=== PATIENT | female | born 1960 ===

== ENCOUNTER 2018-03-17 13:14 | Emergency (ER) | payer MEDICAID, OTHER ==
[2018-03-17 13:14] VITALS: BMI 26.9
[2018-03-17 13:36] VITALS: BP 126/85; PULSE 65; RESP 18; TEMP 98.6; O2SAT 99
[2018-03-17 14:06] LABS: SQUAMOUS EPITHIAL 5 /hpf (0-5); URINE BACTERIA RARE (<OCC); URINE BILIRUBIN NEGATIVE (NEGATIVE); URINE BLOOD NEGATIVE (NEGATIVE); URINE CLARITY Hazy (Clear); URINE COLOR Yellow (YELLOW); URINE GLUCOSE (UA) NORMAL (Normal); URINE LEUKOCYTE ESTERASE 1+ Leu/uL (Negative); URINE PROTEIN NEGATIVE (NEGATIVE)
--- NOTE | 2018-03-17 14:35 | C.PDOC ---
History Of Present Illness 58 year old female presents to the ED for evaluation of dysuria for the last 3 days. Patient notes a burning sensation when urinating and prior multiple urinary tract infections. Denies fever, nausea, vomiting, diarrhea, and any other associated symptoms. Time Seen by Provider: 03/17/18 13:39 Chief Complaint (Nursing): Female Genitourinary History Per: Patient History/Exam Limitations: no limitations Onset/Duration Of Symptoms: Days Current Symptoms Are (Timing): Still Present Past Medical History Reviewed: Historical Data, Nursing Documentation, Vital Signs Vital Signs: Last Vital Signs Temp 98.6 F 03/17/18 13:33 Pulse 65 03/17/18 13:33 Resp 18 03/17/18 13:33 BP 126/85 03/17/18 13:33 Pulse Ox 99 03/17/18 13:33 - Medical History PMH: Asthma, HTN, Hyperthyroidism Surgical History: Tonsillectomy Family History: States: Unknown Family Hx - Social History Hx Alcohol Use: No Hx Substance Use: No - Immunization History Hx Tetanus Toxoid Vaccination: No Hx Influenza Vaccination: No Hx Pneumococcal Vaccination: No Review Of Systems Except As Marked, All Systems Reviewed And Found Negative. Constitutional: Negative for: Fever, Chills Gastrointestinal: Negative for: Diarrhea Genitourinary: Positive for: Dysuria, Other (burning sensation when urinating.) Physical Exam - Physical Exam Appears: Non-toxic Skin: Normal Color, Warm, Dry Head: Atraumatic, Normacephalic Eye(s): bilateral: Normal Inspection Oral Mucosa: Moist Neck: Normal ROM, Supple Chest: Symmetrical Cardiovascular: Rhythm Regular, No Murmur Respiratory: Normal Breath Sounds, No Rales, No Rhonchi, No Wheezing Gastrointestinal/Abdominal: Normal Exam, Soft, No Tenderness Extremity: Normal ROM (x4) Neurological/Psych: Oriented x3, Normal Speech Gait: Steady ED Course And Treatment - Laboratory Results Lab Interpretation: Abnormal (+1 leukocyte esterase on UA) O2 Sat by Pulse Oximetry: 99 (RA) Pulse Ox Interpretation: Normal Medical Decision Making Medical Decision Making: Plan: --Urinalysis. --Urine culture UA with +1 leukocyte esterase but no WBC, however given the patient's symptoms will treat for UTI. Progress/Update: Patient stable for discharge home. Prescribed Macrobid. Disposition - Disposition Disposition: HOME/ ROUTINE Disposition Time: 14:37 Condition: GOOD Additional Instructions: SARAH VALENCIA, thank you for letting us take care of you today. Your provider was Dayanna Alonzo MD and you were treated for ABD PAIN. The emergency medical care you received today was directed at your acute symptoms. If you were prescribed any medication, please fill it and take as directed. It may take several days for your symptoms to resolve. Return to the Emergency Department if your symptoms worsen, do not improve, or if you have any other problems. Please contact your doctor or call one of the physicians/clinics you have been referred to that are listed on the Patient Visit Information form that is included in your discharge packet. Bring any paperwork you were given at discharge with you along with any medications you are taking to your follow up visit. Our treatment cannot replace ongoing medical care by a primary care provider outside of the emergency department. Thank you for allowing the [facility] team to be part of your care today. If you had an X-Ray or CT scan: A Radiologist will review the ED reading if any change in treatment is needed we will contact you. If you had a blood, urine, or wound culture: It will take several days for the results, if any change in treatment is needed we will contact you. If you had an STI test: It will take 48 hours for the results. Please call after 1 week if you have not heard back. Prescriptions: Nitrofurantoin Macrocrystals [Macrobid] 100 mg PO BID #14 cap Instructions: Urinary Tract Infection, Adult (DC) Forms: C2FO (Maltese) - Clinical Impression Clinical Impression: Urinary tract infection - Scribe Statement The provider has reviewed the documentation as recorded by the Scribe (Alfreda Howell) Provider Attestation: All medical record entries made by the Scribe were at my direction and personally dictated by me. I have reviewed the chart and agree that the record accurately reflects my personal performance of the history, physical exam, medical decision making, and the department course for this patient. I have also personally directed, reviewed, and agree with the discharge instructions and disposition.
== END 2018-03-17 14:39 | disposition home or self-care (01) ==
LOC: C.ER 13:14
DX: N39.0 Urinary tract infection, site not specified (principal)